=== PATIENT | female | born 1995 | race Caucasian/White ===

== ENCOUNTER 2018-04-02 05:50 | Emergency (ER) | payer OTHER | END 2018-04-02 06:45 | disposition home or self-care (01) | LOC: FTE 05:50 | DX: R20.2 Paresthesia of skin (principal) | CPT/HCPCS: 99284; Z7502 ==

== ENCOUNTER 2018-04-24 20:09 | Emergency (ER) | payer OTHER | END 2018-04-24 22:56 | disposition home or self-care (01) | LOC: FTE 20:09 | DX: R21 Rash and other nonspecific skin eruption (principal) | CPT/HCPCS: 99284; Z7502 ==